=== PATIENT | male | born 1945 | race Asian ===

== ENCOUNTER 2020-04-14 22:46 | Emergency (ER) | payer OTHER ==
[~2020-04-14] VITALS: Ht 167.6 cm; Wt 73.9 kg
[2020-04-14 22:53] VITALS: Ht 167.6 cm; Wt 73.9 kg
[2020-04-15 01:00] LABS: BASOPHIL % 0.8 % (0-2)
[2020-04-15 01:03] LABS: PLATELET COUNT 89 x10^3mcL (130-400); RED CELL DISTRIBUTION WIDTH 15.3 % (11.5-14.5)
[2020-04-15 01:38] VITALS: BP 140/889
== END 2020-04-15 01:38 | disposition home or self-care (01) ==
LOC: ED 22:46
PROVIDERS: Emergency Medicine
DX: R04.0 Epistaxis (principal); D69.6 Thrombocytopenia, unspecified; Z79.01 Long term (current) use of anticoagulants; I10 Essential (primary) hypertension; N40.0 Benign prostatic hyperplasia without lower urinary tract symptoms

== ENCOUNTER 2020-04-17 02:49 | Emergency (ER) | payer OTHER ==
[~2020-04-17] VITALS: Ht 160 cm; Wt 74.8 kg
[2020-04-17 02:57] VITALS: BP 158/85; Ht 160 cm; Wt 74.8 kg
== END 2020-04-17 04:23 | disposition home or self-care (01) ==
LOC: ED 02:49
DX: R04.0 Epistaxis (principal)